=== PATIENT | male | born 1965 | race Two or more races ===

== ENCOUNTER 2024-08-18 23:44 | Emergency (ER) | payer OTHER ==
[~2024-08-18] VITALS: Ht 170.2 cm; Wt 63.5 kg
[2024-08-19 00:27] LABS: BASOPHILS % (AUTO) 0.5 % (0.0-2.0); EOSINOPHILS # (AUTO) 0.1 K/uL (0.0-0.7); EOSINOPHILS % (AUTO) 0.8 % (0.0-6.0); HEMATOCRIT 28 % (39-51); LYMPHOCYTES # (AUTO) 0.8 K/uL (0.8-4.8); LYMPHOCYTES % (AUTO) 10.3 % (20.0-44.0); MEAN CORPUSCULAR HEMOGLOBIN 28 PG (26.0-33.0); MEAN CORPUSCULAR HGB CONC 32 g/dl (31.0-36.0); MEAN CORPUSCULAR VOLUME 87 fL (80-96); MONOCYTES # (AUTO) 0.5 K/uL (0.1-1.30); MONOCYTES % (AUTO) 7.2 % (2.0-12.0); NEUTROPHILS # (AUTO) 6.1 K/uL (1.8-8.9); NEUTROPHILS % (AUTO) 81.2 % (43.0-81.0); PLATELET COUNT (AUTO) 296 K/uL (150-450); RED BLOOD CELL COUNT(AUTO) 3.21 MIL/uL (4.5-6.0); RED CELL DISTRIBUTION WIDTH 17.6 % (11.5-15.0); WHITE BLOOD COUNT (AUTO) 7.5 K/uL (4.3-11.0)
[2024-08-19 00:36] LABS: CALCIUM, SERUM 9.7 mg/dL (8.5-10.1); CARBON DIOXIDE 22 mmol/L (21-32); CHLORIDE 107 mmol/L (98-107); CREATININE 1.9 mg/dL (0.6-1.3); GLUCOSE 325 mg/dL (74-106); POTASSIUM 4.2 mmol/L (3.5-5.1); SODIUM SERUM 137 mmol/L (136-145); UREA NITROGEN, BLOOD 37 mg/dL (7-18)
[2024-08-19 00:42] LABS: ALANINE AMINOTRANSFERASE 27 U/L (12-78); ALBUMIN 2.8 g/dL (3.4-5.0); ALKALINE PHOSPHATASE 84 U/L (46-116); ASPARTATE AMINOTRANSFERASE 20 U/L (15-37); BILIRUBIN,DIRECT 0.1 mg/dL (0.0-0.2); BILIRUBIN,TOTAL 0.2 mg/dL (0.2-1.0); TOTAL PROTEIN, SERUM 7.5 g/dL (6.4-8.2)
[2024-08-19 00:54] LABS: APPEARANCE,URINE CLEAR (CLEAR); BILIRUBIN,URINE NEGATIVE (NEGATIVE); BLOOD, URINE NEGATIVE Ery/uL (NEGATIVE); COLOR,URINE YELLOW (YELLOW); KETONES,URINE NEGATIVE (NEGATIVE); LEUKOCYTE ESTERASE ,URINE NEGATIVE (NEGATIVE); NITRITE, URINE NEGATIVE (NEGATIVE); PH,URINE 5.5 (5.0-8.0); PROTEIN,URINE TRACE mg/dl (NEGATIVE); UGLUCOSE 2+ mg/dL (NEGATIVE); UROBILINOGEN,URINE 0.2 EU/dL (0.2)
[2024-08-19 01:43] LABS: ADD URINE CULTURE NO; BACTERIA,URINE None seen /HPF (None Seen); MUCUS,URINE Few /LPF (None Seen); RBC,URINE NONE SEEN /HPF (0-2); SQUAMOUS EPITHELIAL CELL,UR None Seen /HPF (None Seen); WBC,URINE NONE SEEN /HPF (0-3)
[2024-08-19] MEDS: IV NS 0.9% 1,000 ML BAG IV ONE (05:15)
[2024-08-19] MEDS ORDERED: ACETAMINOPHEN ES 500 MG TABLET ONE (05:58)
[2024-08-19] MEDS: ACETAMINOPHEN ES 500 MG TABLET PO ONE (06:00)
[2024-08-19 07:33] VITALS: BP 114/58; TEMP 97.9; O2SAT 100
== END 2024-08-19 07:44 | disposition home or self-care (01) ==
LOC: ER 23:46
DX: E11.649 Type 2 diabetes mellitus with hypoglycemia without coma (principal); E11.22 Type 2 diabetes mellitus with diabetic chronic kidney disease; N18.6 End stage renal disease; R94.31 Abnormal electrocardiogram [ECG] [EKG]; Z79.4 Long term (current) use of insulin; Z89.512 Acquired absence of left leg below knee; Z99.2 Dependence on renal dialysis
CPT/HCPCS: 99285; 71045; 93005; 85025; 80048; 80076; 36415 ×2; 84484 ×2; 96360; 81001; 82962 ×4; J7030

== ENCOUNTER 2024-11-20 19:32 | Inpatient (IN) | payer OTHER ==
[~2024-11-20] VITALS: Ht 165.1 cm; Wt 50.3 kg
[2024-11-20 20:08] LABS: BASOPHILS # (AUTO) 0.1 K/uL (0.0-0.2); BASOPHILS % (AUTO) 0.8 % (0.0-2.0); EOSINOPHILS # (AUTO) 0.1 K/uL (0.0-0.7); EOSINOPHILS % (AUTO) 1.5 % (0.0-6.0); HEMATOCRIT 28 % (39-51); HEMOGLOBIN 9.2 g/dL (13.5-17.5); LYMPHOCYTES # (AUTO) 1.4 K/uL (0.8-4.8); LYMPHOCYTES % (AUTO) 18.3 % (20.0-44.0); MEAN CORPUSCULAR HEMOGLOBIN 29 PG (26.0-33.0); MEAN CORPUSCULAR HGB CONC 32 g/dl (31.0-36.0); MEAN CORPUSCULAR VOLUME 88 fL (80-96); MONOCYTES # (AUTO) 0.8 K/uL (0.1-1.30); MONOCYTES % (AUTO) 10.1 % (2.0-12.0); NEUTROPHILS # (AUTO) 5.2 K/uL (1.8-8.9); NEUTROPHILS % (AUTO) 69.3 % (43.0-81.0); PLATELET COUNT (AUTO) 298 K/uL (150-450); RED BLOOD CELL COUNT(AUTO) 3.22 MIL/uL (4.5-6.0); RED CELL DISTRIBUTION WIDTH 16.8 % (11.5-15.0); WHITE BLOOD COUNT (AUTO) 7.5 K/uL (4.3-11.0)
[2024-11-20 20:17] LABS: CALCIUM, SERUM 9.1 mg/dL (8.5-10.1); CREATININE 2.4 mg/dL (0.6-1.3); POTASSIUM 5.4 mmol/L (3.5-5.1)
[2024-11-20 20:23] LABS: ALBUMIN 2.7 g/dL (3.4-5.0); BILIRUBIN,DIRECT 0.1 mg/dL (0.0-0.2); BILIRUBIN,TOTAL 0.2 mg/dL (0.2-1.0); INR 1.08 (0.91-1.10); PARTIAL THROMBOPLASTIN TIME 28.1 SEC (24.3-34.3); PROTHROMBIN TIME 11.1 SECS (9.2-11.1)
[2024-11-20 20:24] LABS: LACTIC ACID 1.3 mmol/L (0.4-2.0)
[2024-11-20] MEDS: ONDANSETRON HCL/PF 4 MG/2 ML VIAL IVP ONE (20:25)
[2024-11-20] MEDS: IV NS 0.9% 1,000 ML BAG IV ONE (20:25)
[2024-11-20] MEDS: MORPHINE SULFATE INJ 2 MG/ML DISP.SYRIN IV ONE (20:26)
[2024-11-20] MEDS ORDERED: ONDANSETRON HCL/PF 4 MG/2 ML VIAL ONE (20:32)
[2024-11-20] MEDS ORDERED: MORPHINE SULFATE INJ 4 MG/ML DISP.SYRIN ONE (20:32)
[2024-11-20] MEDS: CEFEPIME 1 GM in IV D5W 50 ML IV ONE (20:40)
[2024-11-20 20:59] LABS: APPEARANCE,URINE CLEAR (CLEAR); BILIRUBIN,URINE Negative (NEGATIVE); BLOOD, URINE Negative Ery/uL (NEGATIVE); COLOR,URINE YELLOW (YELLOW); KETONES,URINE Negative (NEGATIVE); LEUKOCYTE ESTERASE ,URINE Negative (NEGATIVE); PROTEIN,URINE 30 mg/dl (NEGATIVE); UGLUCOSE Negative (NEGATIVE); UROBILINOGEN,URINE 0.2 EU/dL (0.2)
[2024-11-20 21:10] LABS: NITRITE, URINE NEGATIVE (NEGATIVE)
[2024-11-20] MEDS ORDERED: VANCOMYCIN 1 GM /D5W 250 ML PB IV ONE (21:13)
[2024-11-20 21:22] LABS: ADD URINE CULTURE NO; BACTERIA,URINE Few /HPF (None Seen); SQUAMOUS EPITHELIAL CELL,UR Few /HPF (None Seen); WBC,URINE 0-2 /HPF (0-3)
[2024-11-20 21:23] LABS: URINE AMORPHOUS URATE Rare /HPF (None Seen)
[2024-11-20] MEDS: VANCOMYCIN 1 GM in IV D5W 250 ML IV ONE (21:25)
[2024-11-20] MEDS: SODIUM POLYSTYRENE SULFONATE 15 G/60 ML BOTTLE PO ONE (21:30)
[2024-11-20] MEDS ORDERED: ONDANSETRON HCL/PF 4 MG/2 ML VIAL IVP PRN (21:30)
[2024-11-21] VITALS: BP 139/77; TEMP 97.7; O2SAT 100
[2024-11-21] MEDS: IV NS 0.9% 1,000 ML IV PRN (00:31)
[2024-11-21] MEDS: MORPHINE SULFATE INJ 2 MG/ML DISP.SYRIN IV PRN (01:11)
[2024-11-21 04:00] VITALS: BP 115/64; TEMP 97.7; O2SAT 100
[2024-11-21] MEDS: INSULIN REGULAR, HUMAN 100 UNIT/ML 3 ML VIAL SQ PRN (06:57)
[2024-11-21] MEDS: BLOOD SUGAR DIAGNOSTIC 1 EACH STRIP IN SCH (06:58)
[2024-11-21 07:33] LABS: CALCIUM, SERUM 8.5 mg/dL (8.5-10.1); CREATININE 1.7 mg/dL (0.6-1.3); MAGNESIUM 1.6 mg/dL (1.8-2.4); PHOSPHORUS 3.5 mg/dL (2.5-4.9)
[2024-11-21 07:48] LABS: BASOPHILS % (AUTO) 0.7 % (0.0-2.0); EOSINOPHILS # (AUTO) 0.2 K/uL (0.0-0.7); HEMATOCRIT 27 % (39-51); HEMOGLOBIN 8.7 g/dL (13.5-17.5); LYMPHOCYTES # (AUTO) 1.5 K/uL (0.8-4.8); LYMPHOCYTES % (AUTO) 22.2 % (20.0-44.0); MEAN CORPUSCULAR HEMOGLOBIN 29 PG (26.0-33.0); MEAN CORPUSCULAR HGB CONC 32 g/dl (31.0-36.0); MEAN CORPUSCULAR VOLUME 88 fL (80-96); MONOCYTES # (AUTO) 0.8 K/uL (0.1-1.30); MONOCYTES % (AUTO) 12.1 % (2.0-12.0); NEUTROPHILS # (AUTO) 4.2 K/uL (1.8-8.9); PLATELET COUNT (AUTO) 255 K/uL (150-450); RED BLOOD CELL COUNT(AUTO) 3.06 MIL/uL (4.5-6.0); RED CELL DISTRIBUTION WIDTH 16.8 % (11.5-15.0); WHITE BLOOD COUNT (AUTO) 6.7 K/uL (4.3-11.0)
[2024-11-21 08:00] VITALS: BP 109/66; TEMP 97.9; O2SAT 99
[2024-11-21] MEDS ORDERED: GABA-532 PO (09:00)
[2024-11-21] MEDS ORDERED: CLOP75TA15 PO (09:00)
[2024-11-21] MEDS ORDERED: FERR-68 PO (09:00)
[2024-11-21] MEDS ORDERED: TAMS-12 PO (09:00)
[2024-11-21] MEDS ORDERED: SITA100T PO (09:00)
[2024-11-21] MEDS ORDERED: ASCO-352 PO (09:00)
[2024-11-21] MEDS ORDERED: MAGN400O6 PO (09:00)
[2024-11-21] MEDS ORDERED: INSU100V7 SQ (09:00)
[2024-11-21] MEDS ORDERED: PRED5TAB PO (09:00)
[2024-11-21] MEDS ORDERED: INSU100V28 SQ (09:00)
[2024-11-21] MEDS ORDERED: OXYC-128 PO (09:00)
[2024-11-21] MEDS ORDERED: APIX5TAB PO (09:00)
[2024-11-21] MEDS ORDERED: NA P133E RC (09:00)
[2024-11-21] MEDS ORDERED: CHOL200059 PO (09:00)
[2024-11-21] MEDS ORDERED: MYCO250C8 PO (09:00)
[2024-11-21] MEDS ORDERED: BISA10SU11 RC (09:00)
[2024-11-21] MEDS ORDERED: SODI5POW2 PO (09:00)
[2024-11-21] MEDS ORDERED: ATOR20TA PO (09:00)
[2024-11-21] MEDS ORDERED: MULT-225 PO (09:00)
[2024-11-21] MEDS ORDERED: ACID1TAB14 PO (09:00)
[2024-11-21] MEDS ORDERED: [UNRECOGNIZED DRUG - OTHER] PO (09:00)
[2024-11-21] MEDS ORDERED: LOPE2TAB25 PO (09:00)
[2024-11-21] MEDS ORDERED: TACR1CAP7 PO (09:00)
[2024-11-21] MEDS: PANTOPRAZOLE 40 MG VIAL IV SCH (09:09)
[2024-11-21] MEDS: ENOXAPARIN SODIUM 30 MG/0.3 ML DISP.SYRIN SQ SCH (09:09)
[2024-11-21] MEDS: MAGNESIUM OXIDE 400 MG TABLET PO ONE (09:26)
[2024-11-21] MEDS: Z GUARD REMEDY 4 OZ OINT TP PRN (09:26)
[2024-11-21] MEDS: CEFEPIME 2 GM in IV D5W 100 ML IV SCH (09:26)
[2024-11-21] MEDS ORDERED: BISACODYL SUPP (10 MG) 10 MG/SUPP.RECT SUPP.RECT RC PRN (09:30)
[2024-11-21] MEDS ORDERED: MAGNESIUM HYDROXIDE 30 ML UDC PO PRN (09:30)
[2024-11-21] MEDS ORDERED: NA PHOS,M-B/NA PHOS,DI-BA 1 EA ENEMA RC PRN (09:30)
[2024-11-21] MEDS ORDERED: LOPERAMIDE HCL (2 MG CAP) 2 MG CAPSULE PO PRN (11:00)
[2024-11-21] MEDS: GABAPENTIN 100 MG CAPSULE PO SCH (12:23)
[2024-11-21 16:00] VITALS: BP 148/69; TEMP 98.1; O2SAT 99
[2024-11-21] MEDS: DEXTROSE 50%-WATER 50 ML DISP.SYRIN IV PRN (16:07)
[2024-11-21 16:17] LABS: URINE TOTAL PROTEIN 27.3 mg/dL (0-11.9)
[2024-11-21 16:18] LABS: CREATININE, URINE 36.2 MG/DL (30.0-125.0)
[2024-11-21] MEDS: MYCOPHENOLATE MOFETIL 250 MG CAPSULE PO SCH (17:25)
[2024-11-21] MEDS: TACROLIMUS ANHYDROUS 0.5 MG CAPSULE PO SCH (17:26)
[2024-11-21 20:00] VITALS: BP 128/65; TEMP 102; O2SAT 99
[2024-11-21] MEDS: ACETAMINOPHEN 325 MG TABLET PO PRN (20:50)
[2024-11-21] MEDS: INSULIN GLARGINE, 100 UNIT/ML CARTRIDGE SQ SCH (22:00)
[2024-11-21] MEDS: ATORVASTATIN 10 MG TABLET PO SCH (22:20)
[2024-11-22 04:00] VITALS: BP 131/59; TEMP 99.3; O2SAT 100
[2024-11-22 08:00] VITALS: BP 129/62; TEMP 99; O2SAT 98
[2024-11-22 08:28] LABS: ALBUMIN 2.4 g/dL (3.4-5.0); BILIRUBIN,TOTAL 0.3 mg/dL (0.2-1.0); CALCIUM, SERUM 8.9 mg/dL (8.5-10.1); CREATININE 1.3 mg/dL (0.6-1.3); MAGNESIUM 1.7 mg/dL (1.8-2.4); PHOSPHORUS 2.4 mg/dL (2.5-4.9); POTASSIUM 5.6 mmol/L (3.5-5.1); TOTAL PROTEIN, SERUM 6.4 g/dL (6.4-8.2)
[2024-11-22 08:31] LABS: BASOPHILS # (AUTO) 0.1 K/uL (0.0-0.2); BASOPHILS % (AUTO) 0.8 % (0.0-2.0); EOSINOPHILS # (AUTO) 0.1 K/uL (0.0-0.7); EOSINOPHILS % (AUTO) 1.9 % (0.0-6.0); HEMATOCRIT 28 % (39-51); LYMPHOCYTES # (AUTO) 1.3 K/uL (0.8-4.8); LYMPHOCYTES % (AUTO) 17.6 % (20.0-44.0); MEAN CORPUSCULAR HEMOGLOBIN 29 PG (26.0-33.0); MEAN CORPUSCULAR HGB CONC 32 g/dl (31.0-36.0); MEAN CORPUSCULAR VOLUME 88 fL (80-96); MONOCYTES # (AUTO) 0.7 K/uL (0.1-1.30); NEUTROPHILS # (AUTO) 5.1 K/uL (1.8-8.9); NEUTROPHILS % (AUTO) 69.7 % (43.0-81.0); PLATELET COUNT (AUTO) 266 K/uL (150-450); RED BLOOD CELL COUNT(AUTO) 3.17 MIL/uL (4.5-6.0); RED CELL DISTRIBUTION WIDTH 16.4 % (11.5-15.0); WHITE BLOOD COUNT (AUTO) 7.3 K/uL (4.3-11.0)
[2024-11-22] MEDS: oxyCODONE/APAP (5/325 MG) 1 UDTAB TABLET PO SCH (09:00)
[2024-11-22] MEDS: VANCOMYCIN 750 MG in IV D5W 250 ML IV SCH ×2 (10:34→20:49)
[2024-11-22] MEDS: MULTIVITAMINS,THERAGRAN 1 UDTAB TABLET PO SCH (10:35)
[2024-11-22] MEDS: ASCORBIC ACID 500 MG TABLET PO SCH (10:35)
[2024-11-22] MEDS: LINAGLIPTIN 5 MG TABLET PO SCH (10:36)
[2024-11-22] MEDS: TAMSULOSIN 0.4 MG CAP.SR.24H PO SCH (10:36)
[2024-11-22] MEDS: predniSONE 5 MG TABLET PO SCH (10:36)
[2024-11-22] MEDS: FERROUS SULFATE (325 MG) 325 MG/TAB TABLET PO SCH (10:36)
[2024-11-22] MEDS: ACIDOPHILUS/BULGARICUS 1 EACH TAB.CHEW PO SCH (10:37)
[2024-11-22] MEDS: ARGININE/GLUTAMINE/CALCIUM BMB 1 EACH POWD.PACK PO SCH (10:37)
[2024-11-22] MEDS: CLOPIDOGREL BISULFATE 75 MG TABLET PO SCH (10:42)
[2024-11-22] MEDS: SODIUM ZIRCONIUM CYCLOSILICATE 10 GM POWD.PACK PO SCH (10:42)
[2024-11-22] MEDS: MAGNESIUM OXIDE 400 MG TABLET PO ONE (11:40)
[2024-11-22] MEDS: oxyCODONE/APAP (5/325 MG) 1 UDTAB TABLET PO ONE (11:40)
[2024-11-22] MEDS: CHOLECALCIFEROL 1,000 UNIT TABLET (VIT D3) PO SCH (13:16)
[2024-11-22 16:00] VITALS: BP 112/73; TEMP 97.5; O2SAT 98
[2024-11-22] MEDS: Sodium Phosphate 15 MMOL in IV NS 0.9% 245 ML IV SCH (18:06)
[2024-11-22 20:00] VITALS: BP 112/63; TEMP 98.1; O2SAT 100
[2024-11-22] MEDS: INSULIN GLARGINE, 100 UNIT/ML CARTRIDGE SQ SCH (22:48)
[2024-11-23 04:00] VITALS: BP 117/62; TEMP 98.4; O2SAT 99
[2024-11-23 07:12] LABS: BASOPHILS % (AUTO) 0.2 % (0.0-2.0); EOSINOPHILS # (AUTO) 0.2 K/uL (0.0-0.7); EOSINOPHILS % (AUTO) 3.6 % (0.0-6.0); HEMATOCRIT 28 % (39-51); HEMOGLOBIN 9.2 g/dL (13.5-17.5); LYMPHOCYTES # (AUTO) 1.1 K/uL (0.8-4.8); LYMPHOCYTES % (AUTO) 19.3 % (20.0-44.0); MEAN CORPUSCULAR HEMOGLOBIN 29 PG (26.0-33.0); MEAN CORPUSCULAR HGB CONC 33 g/dl (31.0-36.0); MEAN CORPUSCULAR VOLUME 87 fL (80-96); MONOCYTES # (AUTO) 0.8 K/uL (0.1-1.30); MONOCYTES % (AUTO) 13.7 % (2.0-12.0); NEUTROPHILS # (AUTO) 3.5 K/uL (1.8-8.9); NEUTROPHILS % (AUTO) 63.2 % (43.0-81.0); PLATELET COUNT (AUTO) 216 K/uL (150-450); RED BLOOD CELL COUNT(AUTO) 3.22 MIL/uL (4.5-6.0); RED CELL DISTRIBUTION WIDTH 16.7 % (11.5-15.0); WHITE BLOOD COUNT (AUTO) 5.6 K/uL (4.3-11.0)
[2024-11-23 07:31] LABS: CALCIUM, SERUM 9.2 mg/dL (8.5-10.1); CREATININE 1.2 mg/dL (0.6-1.3); MAGNESIUM 1.6 mg/dL (1.8-2.4); PHOSPHORUS 3.4 mg/dL (2.5-4.9); POTASSIUM 4.3 mmol/L (3.5-5.1)
[2024-11-23 08:00] VITALS: BP 115/72; TEMP 98.7; O2SAT 98
[2024-11-23 08:11] LABS: PTH, INTACT 45 pg/mL (15-65)
[2024-11-23] MEDS: PANTOPRAZOLE 40 MG TABLET.DR PO SCH (10:05)
[2024-11-23] MEDS: MAGNESIUM OXIDE 400 MG TABLET PO ONE (10:07)
[2024-11-23 16:00] VITALS: BP 115/72; TEMP 98.8; O2SAT 98
[2024-11-23 17:20] VITALS: BP 125/76; TEMP 98.8; O2SAT 97
[2024-11-23 20:00] VITALS: BP 115/74; TEMP 97.9; O2SAT 98
[2024-11-23] MEDS: INSULIN GLARGINE, 100 UNIT/ML CARTRIDGE SQ SCH (22:30)
[2024-11-24 04:00] VITALS: BP 148/66; TEMP 97.5; O2SAT 100
[2024-11-24 08:15] VITALS: BP 118/72; TEMP 98.8; O2SAT 98
[2024-11-24 08:38] LABS: CALCIUM, SERUM 9.3 mg/dL (8.5-10.1); CREATININE 1.3 mg/dL (0.6-1.3); MAGNESIUM 1.8 mg/dL (1.8-2.4); PHOSPHORUS 3.1 mg/dL (2.5-4.9); POTASSIUM 4.6 mmol/L (3.5-5.1)
[2024-11-24 09:13] LABS: BASOPHILS % (AUTO) 0.4 % (0.0-2.0); EOSINOPHILS # (AUTO) 0.2 K/uL (0.0-0.7); EOSINOPHILS % (AUTO) 3.4 % (0.0-6.0); HEMATOCRIT 26 % (39-51); HEMOGLOBIN 8.5 g/dL (13.5-17.5); LYMPHOCYTES % (AUTO) 16.4 % (20.0-44.0); MEAN CORPUSCULAR HEMOGLOBIN 28 PG (26.0-33.0); MEAN CORPUSCULAR HGB CONC 32 g/dl (31.0-36.0); MEAN CORPUSCULAR VOLUME 87 fL (80-96); MONOCYTES # (AUTO) 0.7 K/uL (0.1-1.30); MONOCYTES % (AUTO) 11.7 % (2.0-12.0); NEUTROPHILS # (AUTO) 4.1 K/uL (1.8-8.9); NEUTROPHILS % (AUTO) 68.1 % (43.0-81.0); PLATELET COUNT (AUTO) 220 K/uL (150-450); RED BLOOD CELL COUNT(AUTO) 3.02 MIL/uL (4.5-6.0); RED CELL DISTRIBUTION WIDTH 16.4 % (11.5-15.0)
[2024-11-24] MEDS: VANCOMYCIN 1 GM in IV D5W 250ml IV SCH (13:33)
[2024-11-24 16:16] VITALS: BP 115/72; TEMP 98.7; O2SAT 98
[2024-11-24 20:00] VITALS: BP 140/86; TEMP 98.8; O2SAT 98
[2024-11-25 04:00] VITALS: BP 127/82; TEMP 98.2; O2SAT 99
[2024-11-25 06:29] LABS: CALCIUM, SERUM 9.2 mg/dL (8.5-10.1); CREATININE 1.2 mg/dL (0.6-1.3); MAGNESIUM 1.6 mg/dL (1.8-2.4); PHOSPHORUS 2.8 mg/dL (2.5-4.9); POTASSIUM 4.9 mmol/L (3.5-5.1)
[2024-11-25 06:34] LABS: BASOPHILS % (AUTO) 0.7 % (0.0-2.0); EOSINOPHILS # (AUTO) 0.2 K/uL (0.0-0.7); HEMATOCRIT 27 % (39-51); HEMOGLOBIN 8.9 g/dL (13.5-17.5); LYMPHOCYTES # (AUTO) 1.1 K/uL (0.8-4.8); LYMPHOCYTES % (AUTO) 27.6 % (20.0-44.0); MEAN CORPUSCULAR HEMOGLOBIN 29 PG (26.0-33.0); MEAN CORPUSCULAR HGB CONC 33 g/dl (31.0-36.0); MEAN CORPUSCULAR VOLUME 87 fL (80-96); MONOCYTES # (AUTO) 0.6 K/uL (0.1-1.30); MONOCYTES % (AUTO) 15.6 % (2.0-12.0); NEUTROPHILS # (AUTO) 2.1 K/uL (1.8-8.9); NEUTROPHILS % (AUTO) 51.1 % (43.0-81.0); PLATELET COUNT (AUTO) 197 K/uL (150-450); RED CELL DISTRIBUTION WIDTH 15.9 % (11.5-15.0); WHITE BLOOD COUNT (AUTO) 4.1 K/uL (4.3-11.0)
[2024-11-25 08:00] VITALS: BP 98/65; TEMP 98; O2SAT 99
[2024-11-25 10:47] LABS: ANISOCYTOSIS 1+; EOSINOPHILS % (MANUAL) 5 % (0-4); LYMPHOCYTES % (MANUAL) 25 % (16-48); MONOCYTES % (MANUAL) 4 % (0-11.0); NEUTROPHILS % (MANUAL) 66 (42-76); PLATELET ESTIMATE ADEQUATE
[2024-11-25] MEDS: MAGNESIUM OXIDE 400 MG TABLET PO ONE (10:52)
[2024-11-25 16:00] VITALS: BP 101/64; TEMP 98.1; O2SAT 100
[2024-11-25] MEDS: HYDROCODONE/APAP 5/325MG TABLET PO PRN (17:07)
[2024-11-25 20:00] VITALS: BP 97/54; TEMP 97.5; O2SAT 99
[2024-11-26 04:00] VITALS: BP 119/74; TEMP 97.9; O2SAT 100
[2024-11-26 08:28] LABS: CALCIUM, SERUM 9.4 mg/dL (8.5-10.1); CREATININE 1.3 mg/dL (0.6-1.3); POTASSIUM 5.1 mmol/L (3.5-5.1)
[2024-11-26 08:35] LABS: MAGNESIUM 1.8 mg/dL (1.8-2.4); PHOSPHORUS 2.5 mg/dL (2.5-4.9)
== END 2024-11-26 14:51 | DRG 349 ==
LOC: ER 19:43 → MEDSG1 23:14
PROVIDERS: ADMIT Nurse Practitioner Family; ATTEND Nurse Practitioner Acute Care
DX: T87.81 Dehiscence of amputation stump (principal); N17.0 Acute kidney failure with tubular necrosis; T86.12 Kidney transplant failure; E44.0 Moderate protein-calorie malnutrition; E87.20 Acidosis, unspecified; R64 Cachexia; D63.8 Anemia in other chronic diseases classified elsewhere; E87.1 Hypo-osmolality and hyponatremia; E83.9 Disorder of mineral metabolism, unspecified; J15.9 Unspecified bacterial pneumonia; E11.51 Type 2 diabetes mellitus with diabetic peripheral angiopathy without gangrene; E88.09 Other disorders of plasma-protein metabolism, not elsewhere classified; L02.416 Cutaneous abscess of left lower limb; L03.116 Cellulitis of left lower limb; E11.69 Type 2 diabetes mellitus with other specified complication; Y83.5 Amputation of limb(s) as the cause of abnormal reaction of the patient, or of later complication, without mention of misadventure at the time of the procedure; Z79.69 Long term (current) use of other immunomodulators and immunosuppressants; E78.5 Hyperlipidemia, unspecified; E83.42 Hypomagnesemia; E86.9 Volume depletion, unspecified; E87.5 Hyperkalemia; I10 Essential (primary) hypertension; Y83.0 Surgical operation with transplant of whole organ as the cause of abnormal reaction of the patient, or of later complication, without mention of misadventure at the time of the procedure; Z87.891 Personal history of nicotine dependence; Z68.1 Body mass index [BMI] 19.9 or less, adult; J98.11 Atelectasis; Y83.8 Other surgical procedures as the cause of abnormal reaction of the patient, or of later complication, without mention of misadventure at the time of the procedure; Y92.129 Unspecified place in nursing home as the place of occurrence of the external cause
CPT/HCPCS: 36415; 71045-TC; 73590-TC; 76770-TC; 80048-TC; 80053-TC; 80076-TC; 80202-TC; 81001; 82550-TC; 82570-TC; 82962-TC; 83605-TC; 83735-TC; 83970; 84100-TC; 84155; 84165; 84300-TC; 85025-TC; 85730-TC; 87040-TC; 87086-TC; A4217; A4223; A6253; A6403; A6407; A9563; G0378; J0692; J1650; J1815; J2270; J2405; J2470; J3370; J3371; J7030; J7050; J7060; J7507; J7512; J7517

== ENCOUNTER 2025-07-13 17:09 | Emergency (ER) | payer OTHER ==
[~2025-07-13] VITALS: Ht 152.4 cm; Wt 40.8 kg
[~2025-07-13 17:09] MED LIST: ACID1TAB14 PO; APIX5TAB PO; ASCO-352 PO; ATOR20TA PO; BISA10SU11 RC; CHOL200059 PO; CLOP75TA15 PO; FERR-68 PO; GABA-532 PO; INSU100V28 SQ; INSU100V7 SQ; LOPE2TAB25 PO; MAGN400O6 PO; MULT-225 PO; MYCO250C8 PO; NA P133E RC; OXYC-128 PO; PRED5TAB PO; SITA100T PO; SODI5POW2 PO; TACR1CAP7 PO; TAMS-12 PO; [UNRECOGNIZED DRUG - OTHER] PO
[2025-07-13 17:53] LABS: PLATELET COUNT (AUTO) 189 K/uL (150-450); RED BLOOD CELL COUNT(AUTO) 3.57 MIL/uL (4.5-6.0); RED CELL DISTRIBUTION WIDTH 16.1 % (11.5-15.0); WHITE BLOOD COUNT (AUTO) 6.3 K/uL (4.3-11.0)
[2025-07-13 18:02] LABS: CALCIUM, SERUM 9.2 mg/dL (8.5-10.1); CREATININE 7.2 mg/dL (0.6-1.3); SODIUM SERUM 140 mmol/L (136-145); UREA NITROGEN, BLOOD 31 mg/dL (7-18)
[2025-07-13 22:39] VITALS: BP 104/66; TEMP 98.2; O2SAT 99
== END 2025-07-13 22:51 ==
LOC: ER 17:27
DX: R55 Syncope and collapse (principal); E11.22 Type 2 diabetes mellitus with diabetic chronic kidney disease; N18.6 End stage renal disease; Z79.01 Long term (current) use of anticoagulants; Z79.02 Long term (current) use of antithrombotics/antiplatelets; Z79.52 Long term (current) use of systemic steroids; Z79.621 Long term (current) use of calcineurin inhibitor; Z79.624 Long term (current) use of inhibitors of nucleotide synthesis; Z79.84 Long term (current) use of oral hypoglycemic drugs; Z79.891 Long term (current) use of opiate analgesic; Z79.899 Other long term (current) drug therapy; Z89.512 Acquired absence of left leg below knee; Z99.2 Dependence on renal dialysis
CPT/HCPCS: 36415; 70450-TC; 80048-TC; 82962-TC; 84484-TC; 85025-TC